=== PATIENT | female | born 1980 | race Caucasian/White ===

== ENCOUNTER 2024-03-11 02:40 | Emergency (ER) | payer OTHER, SELFPAY ==
--- NOTE | ~2024-03-11 | XR_ITS ---
CLINICAL HISTORY: cough 2 view chest x-ray Comparison: None Findings: No consolidation or effusion. Heart size is normal. No acute fracture. IMPRESSION: 1. No acute findings. This document has been electronically signed by: Elie Best MD, PHD on 03/11/2024 04:04:28
[2024-03-11 02:44] VITALS: BP 107/61; PULSE 93; RESP 20; TEMP 36.6; O2SAT 98; BMI 29.2
[2024-03-11 03:34] LABS: Influenza A PCR NEGATIVE (Negative); Influenza B PCR NEGATIVE (Negative); Resp Syncy Virus RNA Qual PCR NEGATIVE (Negative); SARS COV2 PCR INHOUSE NEGATIVE (Negative)
--- NOTE | 2024-03-11 04:48 | PC.NURSE ---
Pt reporting she no longer wants to wait to be seen states I understand there is only one dr on but Im going to go home Provider and charge aware. Plan of care ongoing.
--- NOTE | 2024-03-11 04:51 | ED.GENADULT ---
HPI - General Adult General Chief complaint: General Medical Stated complaint: parasite Time Seen by Provider: 03/11/24 04:55 Source: patient Mode of arrival: ambulatory Limitations: no limitations History of Present Illness ED Provider: Dr. Sheila Johnson HPI narrative: Patient comes to the emergency room stating that for about a week she has been seeing hook worms coming out of her nose, coughing worms, coming and crawling through her skin and when she moves her bowels he she was seen warmth as well. Patient reports body aches, chills and cough with worms Related Data Previous Rx's ?Medication ?Instructions ?Recorded cyclobenzaprine 10 mg tablet 10 mg PO BEDTIME PRN muscle spasm 11/14/21 #7 tabs lidocaine 5 % topical patch 1 patch topical DAILY PRN pain #15 11/14/21 ea prednisone 20 mg tablet 40 mg (2 x 20 mg) PO DAILY 5 days 11/14/21 #10 tabs Allergies Allergy/AdvReac Type Severity Reaction Status Date / Time cheese Allergy Unknown ITCHY Unverified 04/11/24 11:59 MOUTH TO [place] CHEESE bee pollen [bee stings] Allergy Swelling Verified 04/11/24 11:59 Review of Systems Review of Systems: Constitutional : No Weight loss, No Fever, No Chills, No Night Sweats, No Fatigue, No Malaise ENT/Mouth : No Hearing loss, No Ear Pain, No Nasal Congestion, No Sinus Pain, No Hoarseness, No sore throat, No Rhinorrhea, No Swallowing Difficulty Eyes: No Eye Pain, No Swelling, No Redness, No Foreign Body, No Discharge, No Vision Changes Cardiovascular : No Chest Pain, No SOB, No Dyspnea on Exertion, No Orthopnea, No Edema, No Palpitations Respiratory : No Cough, No Sputum, No Wheezing, No Smoke Exposure, No Dyspnea Gastrointestinal : No Nausea, No Vomiting, No Diarrhea, No Constipation, No abdominal Pain, No Hematochezia, No Melena Genitourinary : no irregular bleeding, No Dysuria, No Urinary Frequency, No Hematuria, No Urinary Incontinence, No Urgency, No Flank Pain, No Urinary Flow Changes, No Hesitancy Musculoskeletal : No joint pain, No Myalgias, No Joint Swelling Skin : No Skin Lesions, No rash Neuro : No Weakness, No Numbness, No Paresthesias, No Loss of Consciousness, No Dizziness, No Headache Psych : Patient reports seeing hookworms coming out through her nose, cough, stool Heme/Lymph: No Bruising, No Bleeding,No Lymphadenopathy Endocrine : No Polyuria, No Polydipsia, No Temperature Intolerance Physical Exam ED Vital Signs: Vital Signs - 24 hr 03/11/24 02:44 Temperature 97.9 F Pulse Rate 93 Respiratory Rate 20 Blood Pressure 107/61 Pulse Oximetry 98 Oxygen Delivery Method Room Air BMI result Body Mass Index 29.2 Const Other: Appearance: Alert. Oriented X3. No acute distress. Eyes: Pupils equal, round and reactive to light. ENT: Pharynx normal. Neck: Normal inspection. Neck supple. No lymph nodes noted. No crepitus CVS: Normal heart rate and rhythm. Pulses normal. Normal S1 and S2 Respiratory: No respiratory distress. Breath sounds normal. No Wheezing. No rales Abdomen: Soft and nontender. No rigidity. No distention. Skin: Skin warm and dry. Normal skin color. Normal skin turgor. Extremities: No lower extremity edema. No Lacerations. No Rash Neuro: Oriented X 3. No motor deficit. No sensory deficit. Moving all extremities. No slurred speech. CN 2 through 12 grossly intact Psych: calm, cooperative, normal affect Medical Decision Making Medical Decision Making MDM Narrative: Patient brought in a sample of her coughed up worms , looks like phlegm, no obvious parasites I offered to the patient a stool sample. Patient states that it would take too long and would prefer to go home. Patient has clear skin, there are no signs of worms coming out through the skin or any orifice. I discussed with with the patient to follow-up with the primary care physician, if needed they can do stool/ova parasite studies Serology test negative for influenza and COVID X-rays negative Differential Diagnosis Differential Diagnoses: The differential diagnosis associated with the presentation includes ( delusional parasitosis, schizophrenia, delusion) Lab Data MDM Lab Attestation statement: I reviewed the patient's lab results. Labs: Lab Results 03/11/24 Range/Units 02:50 Influenza Type A (PCR) NEGATIVE (Negative) Influenza Type B (PCR) NEGATIVE (Negative) RSV RNA Qual (PCR) NEGATIVE (Negative) SARS-CoV-2 RNA (RT-PCR) NEGATIVE (Negative) Independent Interpretation I performed an independent interpretation of an: Plain X-Ray Radiology Impression Discussion of test interpretation with radiology: I have reviewed the radiologist's reading. Radiologist Impression: No consolidation or effusion. Heart size is normal. No acute fracture. IMPRESSION: 1. No acute findings. Discharge Plan Discharge Clinical Impression: Delusions of parasitosis Patient Disposition: Home, Self-Care Additional Instructions: Please follow-up with your primary care physician tomorrow. If you have any worsening or new symptoms, please return to the emergency room or call 911 Prescriptions: No Action cyclobenzaprine 10 mg tablet 10 mg PO BEDTIME PRN (Reason: muscle spasm) Qty: 7 0RF prednisone 20 mg tablet 40 mg PO DAILY 5 Days Qty: 10 0RF lidocaine 5 % adhesive patch,medicated 1 patch topical DAILY PRN (Reason: pain) Qty: 15 0RF Rx Instructions: leave on most painful area for up to 12 hrs Interventions: ED Discharge Assessment Last Done: 03/11/24 05:00 Discharge Date/Time: 03/11/24 05:02 Print Language: Surinamese
[2024-03-11 05:00] VITALS: BP 107/61; PULSE 93; RESP 20; TEMP 36.6; O2SAT 98
== END 2024-03-11 05:02 | disposition home or self-care (01) ==
PROVIDERS: Emergency Provider Emergency Medicine
DX: F22 Delusional disorders (principal); M79.10 Myalgia, unspecified site; R05.9 Cough, unspecified; Z03.818 Encounter for observation for suspected exposure to other biological agents ruled out
CPT/HCPCS: 0241U; 71046; 99283

== ENCOUNTER → 2024-03-11 02:55 | Outpatient (BNV) | payer OTHER, SELFPAY | PROVIDERS: Emergency Provider Emergency Medicine; Visit Provider General Practice | DX: R05.9 Cough, unspecified (principal) | CPT/HCPCS: 71046 ==